=== PATIENT | female | born 1990 | race African-American/Black ===

== ENCOUNTER 2017-06-03 04:29 | Emergency (ER) | payer OTHER ==
[2017-06-03 04:57] VITALS: BMI 20.5
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
[2017-06-03] MEDS ORDERED: KETOROLAC TROMETHAMINE 60 MG/2 ML VIAL IM ONE (07:08)
[2017-06-03] MEDS ORDERED: KETOROLAC TROMETHAMINE 60 MG/2 ML VIAL ONE (07:19)
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
[2017-06-03 11:59] VITALS: BP 110/66; PULSE 78; TEMP 97.8
== END 2017-06-03 12:01 | disposition home or self-care (01) ==
LOC: SUPCPDRO 04:29 → JER 04:29
PROC: 3E0233Z Introduction of Anti-inflammatory into Muscle, Percutaneous Approach (ICD-10-PCS; principal; 2017-06-03)
DX: Z04.1 Encounter for examination and observation following transport accident (principal); V43.62XA Car passenger injured in collision with other type car in traffic accident, initial encounter; Y93.89 Activity, other specified; Y92.410 Unspecified street and highway as the place of occurrence of the external cause
CPT/HCPCS: 71010-TC; 72125-TC; 73060-TC-RT; 73070-TC-RT; 73562-TC-RT; 84703; 99283-25

== ENCOUNTER 2017-08-27 23:42 | Emergency (ER) | payer OTHER ==
[2017-08-28 00:06] VITALS: BP 134/93; PULSE 72; TEMP 98.1; BMI 25.7
--- NOTE | 2017-08-28 01:11 | PDOC ---
History of Present Illness <Oscar Pantoja - Last Filed: 08/28/17 01:59> <Nadege Ann - Last Filed: 08/28/17 03:04> - General Chief Complaint: Chest Pain Stated Complaint: CHEST PAIN Time Seen by Provider: 08/28/17 00:08 - History of Present Illness Initial Comments: 08/28/17 01:06 "The patient is a 27 year old female with a significant PMH of lumbar disc herniation presenting to the emergency department with chest pain since this morning. The patient reports the chest pain as worse with deep inspiration. However, pt denies any SOB. She states that she first experienced the pain at 11am today while at rest. Pt denies leg swelling. Denies recent travel or immobilization. The patient denies use of OCPs. Denies FH of early [place]. The patient denies shortness of breath, headache and dizziness. Denies fever, chills, nausea, vomit, diarrhea and constipation. Denies dysuria, frequency, urgency and hematuria. Allergies: NKA Past surgical history: 2016 right knee surgery Social history: No reported alcohol, drug, or cigarette use. PCP: Dr. Carrera (Oscar Pantoja) Past History - Past Medical History COPD: No - Immunization History Immunization Up to Date: No - Suicide/Smoking/Psychosocial Hx Smoking History: Never smoked Have you smoked in the past 12 months: No Information on smoking cessation initiated: No Hx Alcohol Use: No Drug/Substance Use Hx: No Substance Use Type: None <Oscar Pantoja - Last Filed: 08/28/17 01:59> <Nadege Ann - Last Filed: 08/28/17 03:04> - Past Medical History Allergies/Adverse Reactions: Allergies Allergy/AdvReac Type Severity Reaction Status Date / Time No Known Allergies Allergy Verified 08/28/17 00:06 Review of Systems <Oscar Pantoja - Last Filed: 08/28/17 01:59> <Nadege Ann - Last Filed: 08/28/17 03:04> - Review of Systems Comments:: 08/28/17 01:13 "GENERAL/CONSTITUTIONAL: No fever or chills. No weakness. HEAD, EYES, EARS, NOSE AND THROAT: No change in vision. No ear pain or discharge. No sore throat. CARDIOVASCULAR: No chest pain or shortness of breath. RESPIRATORY: (+) Pleuritic chest pain. No cough, wheezing, or hemoptysis. GASTROINTESTINAL: No nausea, vomiting, diarrhea or constipation. GENITOURINARY: No dysuria, frequency, or change in urination. MUSCULOSKELETAL: No joint or muscle swelling or pain. No neck or back pain. SKIN: No rash NEUROLOGIC: No headache, vertigo, loss of consciousness, or change in strength/ sensation. ENDOCRINE: No increased thirst. No abnormal weight change. HEMATOLOGIC/LYMPHATIC: No anemia, easy bleeding, or history of blood clots. ALLERGIC/IMMUNOLOGIC: No hives or skin allergy." (Ou,Oscar) *Physical Exam <Oscar Pantoja - Last Filed: 08/28/17 01:59> <Nadege Ann - Last Filed: 08/28/17 03:04> - Vital Signs Last Vital Signs Temp Pulse Resp BP Pulse Ox 98.1 F 72 16 134/93 100 08/28/17 00:04 08/28/17 00:04 08/28/17 00:04 08/28/17 00:04 08/28/17 00:04 - Physical Exam Comments: 08/28/17 01:13 "GENERAL: Awake, alert, and fully oriented, in no acute distress HEAD: No signs of trauma EYES: PERRLA, EOMI, sclera anicteric, conjunctiva clear ENT: Auricles normal inspection, hearing grossly normal, nares patent, oropharynx clear without exudates. Moist mucosa NECK: Nontender, no stepoffs, Normal ROM, supple, no lymphadenopathy, JVD, or masses LUNGS: Breath sounds equal, clear to auscultation bilaterally. No wheezes, and no crackles HEART: Regular rate and rhythm, normal S1 and S2, no murmurs, rubs or gallops ABDOMEN: Soft, nontender, normoactive bowel sounds. No guarding, no rebound. No masses EXTREMITIES: Normal range of motion, no edema. No clubbing or cyanosis. No cords, erythema, or tenderness NEUROLOGICAL: Cranial nerves II through XII intact. 5/5 strength and sensation in all extremities, Normal speech, normal gait, normal cerebellar function SKIN: Warm, Dry, normal turgor, no rashes or lesions noted." (Ou,Oscar) Heart Score/ECG Review - History History: Slightly suspicious - Electrocardiogram EKG: Normal - Age Age: </= 45 - Risk Factors Based on the list above the patient has:: No risk factors known - Troponin Troponin: </= normal limit - Score Heart Score - Total: 0 <Oscar Pantoja - Last Filed: 08/28/17 01:59> <Nadege Ann - Last Filed: 08/28/17 03:04> - ECG Impressions Comment:: 08/28/17 01:28 NSR, no DEVIN/STDs, no TWIs, axis wnl, intervals wnl, rate 69 (Oscar Pantoja) ED Treatment Course - LABORATORY CBC & Chemistry Diagram: 08/28/17 01:05 08/28/17 01:05 <Oscar Pantoja - Last Filed: 08/28/17 01:59> - LABORATORY CBC & Chemistry Diagram: 08/28/17 01:05 08/28/17 01:05 <Nadege Ann - Last Filed: 08/28/17 03:04> - ADDITIONAL ORDERS Additional order review: Laboratory Results 08/28/17 08/28/17 08/28/17 01:05 01:05 01:05 Sodium 140 Potassium 3.7 Chloride 105 Carbon Dioxide 25 Anion Gap 10 BUN 9 Creatinine 0.7 Creat Clearance w eGFR > 60 Random Glucose 84 Calcium 8.8 Total Bilirubin 0.2 AST 17 ALT 23 Alkaline Phosphatase 43 L Creatine Kinase 153 Creatine Kinase Index 0.6 CK-MB (CK-2) < 1.000 Troponin I < 0.02 Total Protein 7.6 Albumin 3.7 Urine HCG, Qual Negative 08/28/17 01:05 RBC 5.06 MCV 81.0 MCHC 33.4 RDW 13.3 MPV 7.9 Neutrophils % 50.6 Lymphocytes % 41.5 H Monocytes % 4.6 Eosinophils % 2.7 Basophils % 0.6 - Medications Given in the ED: ED Medications Discontinued Medications Generic Name Dose Route Start Last Admin Trade Name Freq PRN Reason Stop Dose Admin Ketorolac Tromethamine 30 mg 08/28/17 01:30 08/28/17 01:58 Toradol Injection - IM 08/28/17 01:31 30 mg ONCE ONE Administration Medical Decision Making <Oscar Pantoja - Last Filed: 08/28/17 01:59> <Nadege Ann - Last Filed: 08/28/17 03:04> - Medical Decision Making 08/28/17 01:29 27 F with pleuritic chest pain. Pt with normal vitals, normal exam. PERC and Wells score 0, making PE unlikely. Pt with no cardiac risk factors and normal EKG, making ACS unlikely. Will r/o PNA vs PTX with CXR. - Labs, trop - CXR - Toradol 08/28/17 01:56 Labs wnl, trop negative. Pt reassessed - now feels better s/p toradol. Pt signed out to overnight attending, pending CXR and re-evaluation. (Oscar Pantoja) 08/28/17 03:04 CXR clear on my read. Cleared for DC home. -- Seth (Nadege Ann) *DC/Admit/Observation/Transfer <Oscar Pantoja - Last Filed: 08/28/17 01:59> <Nadege Ann - Last Filed: 08/28/17 03:04> Diagnosis at time of Disposition: Atypical chest pain - Referrals Referrals: Kenneth Carrera MD [Primary Care Provider] - - Patient Instructions Printed Discharge Instructions: DI for Atypical Chest Pain Additional Instructions: Please follow up with your primary care doctor within 1 week for further evaluation of your chest pain. Even though your tests were normal today, we cannot rule out all serious causes of chest pain. You will need regular follow up with your primary doctor for a full evaluation. If you experience worsening pain, shortness of breath, fevers, or any other concerning symptoms, return to the ER immediately. - Post Discharge Activity - Attestations Physician Attestion: 08/28/17 01:58 I, Dr. Oscar Pantoja MD, attest that this document has been prepared under my direction and personally reviewed by me in its entirety. I further attest, that it accurately reflects all work, treatment, procedures and medical decision -making performed by me. (Oscar Pantoja)
[2017-08-28 01:18] LABS: BASO % 0.6 % (0-2.0); EOS % 2.7 % (0-4.5); HEMOGLOBIN 13.7 GM/dL (10.7-15.3); LYMPH % 41.5 % (8-40); MCH 27.1 pg (25.7-33.7); MCHC 33.4 g/dl (32.0-36.0); MEAN PLT VOLUME 7.9 fl (7.5-11.1); MONO % 4.6 % (3.8-10.2); NEUT % 50.6 % (42.8-82.8); PLATELET COUNT 260 K/MM3 (134-434); RBC 5.06 M/mm3 (3.60-5.2); RDW 13.3 % (11.6-15.6); WHITE BLOOD COUNT 8.1 K/mm3 (4.0-10.0)
[2017-08-28] MEDS ORDERED: KETOROLAC TROMETHAMINE 30 MG/1 ML VIAL IM ONE (01:30)
[2017-08-28 01:44] LABS: ALBUMIN 3.7 g/dl (3.4-5.0); ANION GAP 10 (8-16); BILIRUBIN,TOTAL 0.2 mg/dL (0.2-1.0); BLOOD UREA NITROGEN 9 mg/dL (7-18); CALCIUM 8.8 mg/dL (8.5-10.1); CHLORIDE 105 mmol/L (98-107); CO2 25 mmol/L (21-32); CREATININE 0.7 mg/dL (0.55-1.02); GLUCOSE,RANDOM 84 mg/dL (74-106); POTASSIUM 3.7 mmol/L (3.5-5.1); SGOT/AST 17 U/L (15-37); SGPT/ALT 23 U/L (12-78); SODIUM 140 mmol/L (136-145); TOT PROT 7.6 g/dl (6.4-8.2)
[2017-08-28 01:45] LABS: ALK PHOS 43 U/L (45-117)
[2017-08-28] MEDS ORDERED: KETOROLAC TROMETHAMINE 30 MG/1 ML VIAL ONE (01:54)
--- NOTE | 2017-08-29 20:29 | EKG ---
Test Reason : Blood Pressure : / mmHG Vent. Rate : 069 BPM Atrial Rate : 069 BPM P-R Int : 120 ms QRS Dur : 080 ms QT Int : 386 ms P-R-T Axes : 056 072 049 degrees QTc Int : 413 ms NORMAL SINUS RHYTHM NORMAL ECG NO PREVIOUS ECGS AVAILABLE Confirmed by CAIN AMBROCIO MD ([id number]) on 08/29/2017 8:29:26 PM Referred By: Confirmed By:CAIN AMBROCIO MD
== END 2017-08-28 03:21 | disposition home or self-care (01) ==
LOC: JER 23:42
PROC: 3E0233Z Introduction of Anti-inflammatory into Muscle, Percutaneous Approach (ICD-10-PCS; principal; 2017-08-27)
DX: R07.89 Other chest pain (principal)
CPT/HCPCS: 36415; 71046-TC-FY; 80053; 82550; 82553; 84484; 84703; 85025; 93005; 93010; 99282-25